=== PATIENT | female | born 1975 ===

== ENCOUNTER → 2019-06-03 | Outpatient (CLI) | payer OTHER | LOC: PLD 07:25 → LAB SHORT 07:25 → LAB 07:25 | DX: R21 Rash and other nonspecific skin eruption (principal) | CPT/HCPCS: 88312 ==

== ENCOUNTER → 2022-12-19 | Outpatient (CLI) | payer OTHER | LOC: LAB SHORT 08:10 → PLD 08:10 | DX: R21 Rash and other nonspecific skin eruption (principal) | CPT/HCPCS: 88312 ==